=== PATIENT | male | born 1995 | race African-American/Black ===

== ENCOUNTER 2017-03-22 20:13 | Emergency (ER) | payer MEDICAID ==
[~2017-03-22] VITALS: Ht 180.3 cm; Wt 73.0 kg
[2017-03-22] MEDS ORDERED: KETOROLAC 30MG/ML VIAL IV STA (23:23)
[2017-03-22] MEDS ORDERED: SODIUM CHLORIDE 0.9% 1,000 ML IV ONE (23:23)
[2017-03-22 23:53] LABS: HEMATOCRIT. 30.8 % (42.0-52.0); HEMOGLOBIN. 10.3 g/dL (14.0-18.0); MEAN CORPUSCULAR HEMOGLOBIN 23.8 pg (28.0-32.0); MEAN CORPUSCULAR VOLUME 71.4 fL (80.0-94.0); MEAN PLATELET VOLUME 10.8 fl (7.4-10.4); PLATELET 100 x1000/uL (130-400); RED BLOOD CELL COUNT 4.32 mill/uL (4.7-6.1); RED CELL DISTRIBUTION WIDTH 17.6 % (11.6-14.6)
[2017-03-22 23:56] LABS: CHLORIDE 99 mEq/L (98-107)
[2017-03-23 00:06] LABS: CARBON DIOXIDE 28 mEq/L (21-32); ETHANOL BLOOD < 10 mg/dL
[2017-03-23 00:46] LABS: CLARITY URINE CLEAR (CLEAR); COLOR URINE YELLOW (YELLOW); GLUCOSE URINE NEGATIVE (NEGATIVE); KETONES URINE NEGATIVE (NEGATIVE); LEUKOCYTE ESTERASE URINE NEGATIVE (NEGATIVE); NITRITE URINE POSITIVE (NEGATIVE); OCCULT BLOOD URINE TRACE (NEGATIVE); PH URINE 5.5 (4.5-8.0); PROTEIN URINE 1+ (NEGATIVE); SPECIFIC GRAVITY URINE 1.016 (1.005-1.030)
[2017-03-23 00:58] LABS: *AMPHETAMINES SCREEN URINE NEGATIVE (NEGATIVE); *BARBITURATES SCREEN URINE NEGATIVE (NEGATIVE); *BENZODIAZEPINES SCREEN URINE NEGATIVE (NEGATIVE); *COCAINE SCREEN URINE NEGATIVE (NEGATIVE); CANNABINOID URINE SCREEN PRESUMTIVE POSITIVE (NEGATIVE); METHADONE URINE SCREEN NEGATIVE (NEGATIVE); OPIATES URINE SCREEN PRESUMTIVE POSITIVE (NEGATIVE); PHENCYCLIDINE URINE SCREEN NEGATIVE (NEGATIVE)
[2017-03-23] MEDS ORDERED: AZITHROMYCIN 500 MG TABLET PO NR (02:45)
[2017-03-23] MEDS: CEFTRIAXONE SODIUM 250 MG/VIAL IM NR ×2 (02:45→04:23)
[2017-03-23] MEDS ORDERED: LIDOCAINE HCL 1% 20ML VIAL (Pyxis) INJ INFIL NR (02:45)
[2017-03-23 03:52] LABS: PLATELET ESTIMATE SLIGHTLY DECREASED
[2017-03-23 04:00] VITALS: BP 115/68
== END 2017-03-23 04:00 | disposition home or self-care (01) ==
LOC: ER 20:13
DX: B08.4 Enteroviral vesicular stomatitis with exanthem (principal); N34.2 Other urethritis; F12.10 Cannabis abuse, uncomplicated
CPT/HCPCS: 36415; 80053; 80305; 81001; 83690; 85025; 87070; 87077; 87086; 87430; 96361; 96372; 96374; 99284; G0482; J0696; J1885; J3490; J7030; Z7610

== ENCOUNTER 2024-02-08 05:13 | Emergency (ER) | payer MEDICAID ==
[~2024-02-08] VITALS: Ht 185.4 cm; Wt 87.0 kg
[2024-02-08 05:21] VITALS: O2SAT 100
[2024-02-08 05:52] LABS: CHLORIDE 107 mEq/L (98-107); POTASSIUM 3.9 mEq/L (3.5-5.1); SODIUM 140 mEq/L (136-145)
[2024-02-08 05:53] LABS: BASOPHILS % 0.7 % (0.0-2.0); CARBON DIOXIDE 27 mEq/L (21-32); EOSINOPHILS % 0.8 % (0.0-5.0); HEMATOCRIT. 39.8 % (42.0-52.0); HEMOGLOBIN. 13.4 g/dL (14.0-18.0); LYMPHOCYTES % 20.3 % (20.0-50.0); MEAN CORPUSCULAR HEMOGLOBIN 31.3 pg (28.0-32.0); MEAN CORPUSCULAR HGB CONC 33.7 g/dL (31.0-37.0); MEAN PLATELET VOLUME 7.1 fl (7.4-10.4); MONOCYTES % 7.3 % (2.0-8.0); NEUTROPHILS % 70.9 % (40.0-76.0); PLATELET 216 x1000/uL (130-400); RED BLOOD CELL COUNT 4.28 mill/uL (4.7-6.1); RED CELL DISTRIBUTION WIDTH 13.5 % (11.6-14.6); WHITE BLOOD COUNT 9.2 x1000/uL (4.5-11.0)
[2024-02-08 05:54] LABS: CALCIUM 9.8 mg/dL (8.7-10.4)
[2024-02-08 05:58] LABS: CREATININE 1.2 mg/dL (0.6-1.3)
[2024-02-08 05:59] LABS: GLUCOSE 105 mg/dL (70-105); UREA NITROGEN BLOOD 11 mg/dL (9-23)
[2024-02-08 06:00] LABS: ALANINE AMINOTRANSFERASE 84 IU/L (10-49); ALBUMIN 4.3 g/dL (3.2-4.8); ASPARTATE AMINOTRANSFERASE 50 IU/L (<34)
[2024-02-08 06:01] LABS: BILIRUBIN DIRECT 0.1 mg/dL (<=3.0); BILIRUBIN TOTAL 0.4 mg/dL (0.1-1.0)
[2024-02-08] MEDS: LACTATED RINGERS 1,000 ML IV SCH (06:32)
[2024-02-08] MEDS: LEVETIRACETAM 500MG PREMIX 100 ML IV ONE ×2 (06:32→06:34)
[2024-02-08 07:35] VITALS: BP 118/92; PULSE 95; RESP 18; TEMP 37.05852; O2SAT 100
== END 2024-02-08 08:01 | disposition home or self-care (01) ==
LOC: ER 05:33
DX: R56.9 Unspecified convulsions (principal); R79.89 Other specified abnormal findings of blood chemistry; F12.90 Cannabis use, unspecified, uncomplicated; I25.2 Old myocardial infarction
CPT/HCPCS: 99284; 96365; 80076; 80048; 80307; 85025; 36415; 93005; J1953

== ENCOUNTER 2024-04-13 18:41 | Inpatient (IN) | payer MEDICAID ==
[~2024-04-13] VITALS: Ht 182.9 cm; Wt 83.5 kg
[2024-04-13 18:50] VITALS: O2SAT 100
[2024-04-13] MEDS: LEVETIRACETAM 1000MG PREMIX 100 ML IV ONE (19:31)
[2024-04-13] MEDS: LORAZEPAM 2MG/ML INJ IV ONE (19:40)
[2024-04-13 20:09] LABS: DIFFERENTIAL COMMENT 1; HEMATOCRIT. 41.7 % (42.0-52.0); HEMOGLOBIN. 13.6 g/dL (14.0-18.0); MEAN CORPUSCULAR HEMOGLOBIN 30.1 pg (28.0-32.0); MEAN CORPUSCULAR HGB CONC 32.6 g/dL (31.0-37.0); MEAN CORPUSCULAR VOLUME 92.1 fL (80.0-94.0); MEAN PLATELET VOLUME 7.5 fl (7.4-10.4); PLATELET 264 x1000/uL (130-400); RED BLOOD CELL COUNT 4.53 mill/uL (4.7-6.1); RED CELL DISTRIBUTION WIDTH 12.7 % (11.6-14.6); WHITE BLOOD COUNT 14.9 x1000/uL (4.5-11.0)
[2024-04-13 20:18] LABS: CHLORIDE 101 mEq/L (98-107); POTASSIUM 4.3 mEq/L (3.5-5.1); SODIUM 138 mEq/L (136-145)
[2024-04-13 20:19] LABS: CARBON DIOXIDE 19 mEq/L (21-32)
[2024-04-13 20:20] LABS: CALCIUM 9.2 mg/dL (8.7-10.4)
[2024-04-13 20:22] LABS: PLATELET ESTIMATE NORMAL
[2024-04-13 20:24] LABS: CREATININE 1.3 mg/dL (0.6-1.3); GLUCOSE 215 mg/dL (70-105)
[2024-04-13 20:25] LABS: UREA NITROGEN BLOOD 12 mg/dL (9-23)
[2024-04-13 20:37] LABS: ETHANOL BLOOD < 10 mg/dL (<10)
[2024-04-13 21:32] LABS: CLARITY URINE CLOUDY (CLEAR); COLOR URINE YELLOW (YELLOW); GLUCOSE URINE NEGATIVE (NEGATIVE); KETONES URINE NEGATIVE (NEGATIVE); LEUKOCYTE ESTERASE URINE NEGATIVE (NEGATIVE); NITRITE URINE NEGATIVE (NEGATIVE); OCCULT BLOOD URINE 3+ (NEGATIVE); PH URINE 5.5 (4.5-8.0); PROTEIN URINE 1+ (NEGATIVE); SPECIFIC GRAVITY URINE 1.017 (1.005-1.030); UROBILINOGEN URINE 0.2 E.U./dL (0.2-1.0)
[2024-04-13 21:42] LABS: *AMPHETAMINES SCREEN URINE NEGATIVE (NEGATIVE)
[2024-04-13 21:43] LABS: *BARBITURATES SCREEN URINE NEGATIVE (NEGATIVE); *BENZODIAZEPINES SCREEN URINE PRESUMPTIVE POSITIVE (NEGATIVE); *COCAINE SCREEN URINE NEGATIVE (NEGATIVE); METHADONE URINE SCREEN NEGATIVE (NEGATIVE); OPIATES URINE SCREEN NEGATIVE (NEGATIVE)
[2024-04-13 21:44] LABS: CANNABINOID URINE SCREEN PRESUMPTIVE POSITIVE (NEGATIVE); ECSTASY MDMA SCREEN URINE NEGATIVE (NEGATIVE); PHENCYCLIDINE URINE SCREEN NEGATIVE (NEGATIVE)
[2024-04-13 21:59] LABS: BACTERIA URINE 4+; RBC URINE TNTC /hpf (0-2); SQUAMOUS EPITHELIAL CELL URINE FEW /lpf (RARE/1+); WBC URINE 0-2 /hpf (0-2)
[2024-04-13] MEDS: ACETAMINOPHEN 325MG TABLET PO ONE (23:03)
[2024-04-13] MEDS: CEFTRIAXONE 1GM/50ML 50 ML IV ONE (23:04)
[2024-04-13] MEDS ORDERED: ONDANSETRON HCL 4MG/2ML INJ IV PRN (23:15)
[2024-04-13] MEDS ORDERED: NA PHOS,M-B/NA PHOS,DI-BA ENEMA 118ML PR PRN (23:15)
[2024-04-13] MEDS ORDERED: IPRATROPIUM/ALBUTEROL 0.5-3(2.5)MG/3ML NEB HHN PRN (23:15)
[2024-04-13] MEDS ORDERED: CLONIDINE 0.1MG TABLET PO PRN (23:15)
[2024-04-13] MEDS ORDERED: DOCUSATE SODIUM 100MG CAPSULE PO PRN (23:15)
[2024-04-13] MEDS ORDERED: MAGNESIUM/ALUMINUM HYDROXIDE/SIMETHICONE 30ML UDC PO PRN (23:15)
[2024-04-13] MEDS ORDERED: GUAIFENESIN 200MG/10ML SUGAR FREE UDC PO PRN (23:15)
[2024-04-13] MEDS ORDERED: DEXTROSE 50% WATER 50ML SYRINGE IV PRN (23:15)
[2024-04-13] MEDS ORDERED: ACETAMINOPHEN 325MG TABLET PO PRN ×2 (23:15)
[2024-04-13] MEDS ORDERED: LORAZEPAM 2MG/ML INJ IV PRN (23:15)
[2024-04-13] MEDS ORDERED: VANCOMYCIN 1.5GM/250ML IV NR (23:30)
[2024-04-14 00:15] VITALS: BP 107/55; PULSE 92; RESP 18; TEMP 36.6696; TEMP 36.696; O2SAT 98
[2024-04-14] MEDS: FAMOTIDINE 20MG/2ML VIAL IV SCH (03:00)
[2024-04-14] MEDS: MVI, ADULT NO.1 10 ML, FOLIC ACID 1 MG, THIAMINE HCL 100 MG in SODIUM CHLORIDE 0.9% 1,0... IV NR (03:24)
[2024-04-14 04:00] VITALS: BP 105/56; PULSE 76; RESP 18; TEMP 36.6696; O2SAT 97
[2024-04-14 06:14] LABS: BASOPHILS % 0.5 % (0.0-2.0); HEMATOCRIT. 36.7 % (42.0-52.0); HEMOGLOBIN. 12.5 g/dL (14.0-18.0); LYMPHOCYTES % 23.9 % (20.0-50.0); MEAN CORPUSCULAR HEMOGLOBIN 30.3 pg (28.0-32.0); MEAN CORPUSCULAR HGB CONC 34.1 g/dL (31.0-37.0); MEAN CORPUSCULAR VOLUME 88.9 fL (80.0-94.0); MEAN PLATELET VOLUME 7.3 fl (7.4-10.4); MONOCYTES % 8.6 % (2.0-8.0); PLATELET 244 x1000/uL (130-400); RED BLOOD CELL COUNT 4.13 mill/uL (4.7-6.1); RED CELL DISTRIBUTION WIDTH 12.7 % (11.6-14.6); WHITE BLOOD COUNT 5.4 x1000/uL (4.5-11.0)
[2024-04-14 06:25] LABS: CHLORIDE 107 mEq/L (98-107); SODIUM 140 mEq/L (136-145)
[2024-04-14 06:26] LABS: CARBON DIOXIDE 25 mEq/L (21-32)
[2024-04-14 06:32] LABS: GLUCOSE 90 mg/dL (70-105); UREA NITROGEN BLOOD 16 mg/dL (9-23)
[2024-04-14 06:33] LABS: ALANINE AMINOTRANSFERASE 24 IU/L (10-49); AMMONIA 45 uMol/L (<32); ASPARTATE AMINOTRANSFERASE 47 IU/L (<34)
[2024-04-14 06:34] LABS: ALBUMIN 4.3 g/dL (3.2-4.8); CREATINE KINASE 917 IU/L (46-171)
[2024-04-14] MEDS: BLOOD SUGAR DIAGNOSTIC STRIP TEST SCH (06:40)
[2024-04-14 06:43] LABS: BILIRUBIN TOTAL 0.3 mg/dL (0.1-1.0)
[2024-04-14 06:46] LABS: BILIRUBIN DIRECT < 0.1 mg/dL (<=3.0); CREATININE 1.9 mg/dL (0.6-1.3)
[2024-04-14 06:54] LABS: TROPONIN I HIGH SENSITIVITY 265 ng/L (3.0-53)
[2024-04-14 08:36] LABS: PHOSPHORUS 4.2 mg/dL (2.5-4.9)
[2024-04-14] MEDS ORDERED: LEVETIRACETAM 500MG PREMIX 100 ML IV SCH (09:00)
[2024-04-14] MEDS ORDERED: LEVETIRACETAM 500MG in NACL 100ML PREMIX IV SCH (09:00)
[2024-04-14] MEDS: VANCOMYCIN 1.5GM/250ML IV NR (11:44)
[2024-04-14 12:00] VITALS: BP 102/62; PULSE 55; RESP 18; TEMP 36.50292; O2SAT 98
[2024-04-14] MEDS: LEVETIRACETAM 1000MG PREMIX 100 ML IV SCH (15:58)
[2024-04-14] MEDS: PIPERACILLIN/TAZO 3.375G/50ML 50 ML IV SCH (15:59)
[2024-04-14 16:00] VITALS: BP 111/68; PULSE 59; RESP 18; TEMP 36.50292; O2SAT 98
[2024-04-14] MEDS ORDERED: VANCOMYCIN 1.25GM PMX (XELLIA) 250 ML IV SCH (16:00)
[2024-04-14] MEDS ORDERED: HYDR-459 MT (18:40)
[2024-04-14] MEDS ORDERED: SERT25TA PO (18:41)
[2024-04-14 18:50] LABS: CREATINE KINASE 1144 IU/L (46-171)
[2024-04-14 18:54] LABS: TROPONIN I HIGH SENSITIVITY 107 ng/L (3.0-53)
[2024-04-14] MEDS ORDERED: LORAZEPAM 2MG/ML INJ IV PRN (19:00)
[2024-04-14] MEDS: DEXT 5%/0.9% NACL 1,000 ML IV SCH (19:15)
[2024-04-14 20:00] VITALS: BP 121/83; PULSE 55; RESP 20; TEMP 36.16956; O2SAT 98
[2024-04-14 23:56] VITALS: BP 110/74; PULSE 52; RESP 20; TEMP 36.22512; O2SAT 99
[2024-04-15 04:00] VITALS: BP 96/45; PULSE 52; RESP 20; TEMP 36.05844; O2SAT 100
[2024-04-15 08:00] VITALS: BP 127/58; PULSE 68; RESP 18; TEMP 36.72516; O2SAT 98
[2024-04-15 08:42] LABS: HEMATOCRIT 40.5 % (42.0-52.0); HEMOGLOBIN 13.1 g/dL (14.0-18.0); MEAN CORPUSCULAR HEMOGLOBIN 29.7 pg (28.0-32.0); MEAN CORPUSCULAR HGB CONC 32.4 g/dL (31.0-37.0); MEAN CORPUSCULAR VOLUME 91.6 fL (80.0-94.0); PLATELET 255 x1000/uL (130-400); RED BLOOD CELL COUNT 4.42 mill/uL (4.7-6.1); RED CELL DISTRIBUTION WIDTH 12.5 % (11.6-14.6); WHITE BLOOD COUNT 4.1 x1000/uL (4.5-11.0)
[2024-04-15 08:45] LABS: CHLORIDE 105 mEq/L (98-107); POTASSIUM 3.8 mEq/L (3.5-5.1); SODIUM 138 mEq/L (136-145)
[2024-04-15 08:46] LABS: CALCIUM 9.5 mg/dL (8.7-10.4); CARBON DIOXIDE 25 mEq/L (21-32)
[2024-04-15 08:51] LABS: CREATININE 1.9 mg/dL (0.6-1.3); GLUCOSE 88 mg/dL (70-105); UREA NITROGEN BLOOD 12 mg/dL (9-23)
[2024-04-15 08:52] LABS: CREATINE KINASE 940 IU/L (46-171)
[2024-04-15 08:53] LABS: PHOSPHORUS 2.7 mg/dL (2.5-4.9)
[2024-04-15 09:01] LABS: TROPONIN I HIGH SENSITIVITY 65 ng/L (3.0-53)
[2024-04-15] MEDS: LORAZEPAM 2MG/ML INJ IV PRN (09:58)
[2024-04-15 12:00] VITALS: BP 101/63; PULSE 52; RESP 18; TEMP 37.05852; O2SAT 97
[2024-04-15] MEDS: VANCOMYCIN 1GM/200ML PMX (BAXTER) IV SCH (13:00)
[2024-04-15 16:00] VITALS: BP 108/53; PULSE 46; RESP 17; TEMP 36.61404; O2SAT 98
[2024-04-15 20:00] VITALS: BP 111/72; PULSE 61; RESP 18; TEMP 36.72516; O2SAT 99
[2024-04-16] VITALS: BP 109/62; PULSE 51; RESP 19; TEMP 36.6696; O2SAT 98
[2024-04-16 04:00] VITALS: BP 110/71; PULSE 55; RESP 19; TEMP 36.72516; O2SAT 99
[2024-04-16 07:33] LABS: CHLORIDE 107 mEq/L (98-107); HEMATOCRIT 38.7 % (42.0-52.0); HEMOGLOBIN 12.7 g/dL (14.0-18.0); MEAN CORPUSCULAR HEMOGLOBIN 29.2 pg (28.0-32.0); MEAN CORPUSCULAR HGB CONC 32.8 g/dL (31.0-37.0); MEAN CORPUSCULAR VOLUME 88.9 fL (80.0-94.0); PLATELET 272 x1000/uL (130-400); POTASSIUM 3.5 mEq/L (3.5-5.1); RED BLOOD CELL COUNT 4.35 mill/uL (4.7-6.1); RED CELL DISTRIBUTION WIDTH 12.8 % (11.6-14.6); SODIUM 140 mEq/L (136-145); WHITE BLOOD COUNT 4.4 x1000/uL (4.5-11.0)
[2024-04-16 07:34] LABS: CARBON DIOXIDE 27 mEq/L (21-32)
[2024-04-16 07:39] LABS: CREATININE 1.5 mg/dL (0.6-1.3); GLUCOSE 80 mg/dL (70-105); UREA NITROGEN BLOOD 8 mg/dL (9-23)
[2024-04-16 08:00] VITALS: BP 124/86; PULSE 73; RESP 18; TEMP 36.72516; O2SAT 98
[2024-04-16 12:00] VITALS: BP 122/76; PULSE 72; RESP 18; TEMP 36.72516; O2SAT 98
== END 2024-04-16 13:11 | disposition home or self-care (01) | DRG 720 ==
LOC: ER 18:41 → 7EST 22:29 → EDBEDREQTM 22:37
PROVIDERS: ADMIT Internal Medicine; ATTEND Internal Medicine
DX: A41.9 Sepsis, unspecified organism (principal); G92.8 Other toxic encephalopathy; M62.82 Rhabdomyolysis; T40.411A Poisoning by fentanyl or fentanyl analogs, accidental (unintentional), initial encounter; Z20.822 Contact with and (suspected) exposure to COVID-19; R31.9 Hematuria, unspecified; F41.9 Anxiety disorder, unspecified; F11.10 Opioid abuse, uncomplicated; Z95.2 Presence of prosthetic heart valve; Z87.820 Personal history of traumatic brain injury; Z95.3 Presence of xenogenic heart valve; Y92.89 Other specified places as the place of occurrence of the external cause
CPT/HCPCS: 36415; 70480; 71045; 80048; 80076; 80202; 80305; 80320; 81003; 82140; 82550; 82962; 83605; 83735; 84100; 84145; 84484; 85025; 85027; 86022; 86705; 87426; 93005; 93308; 93970; 97161; 97165; 99291; J0696; J1953; J2060; J2543; J3370; J3411; J3490; J7030; G0480